=== PATIENT | male | born 1965 | race Hispanic/Latino ===

== ENCOUNTER 2016-07-19 13:43 | Emergency (ER) | payer MEDICARE, OTHER ==
[2016-07-19] MEDS ORDERED: ONDANSETRON 4 MG VIAL ONE (17:12)
[2016-07-19] MEDS ORDERED: DILAUDID 1 MG/ML AMP ONE ×2 (17:12→18:39)
[2016-07-19] MEDS ORDERED: SODIUM CHLORIDE 0.9% 1,000 ML ONE (17:13)
== END 2016-07-19 19:03 | disposition home or self-care (01) ==
LOC: ER 13:43
DX: R10.11 Right upper quadrant pain (principal); K21.9 Gastro-esophageal reflux disease without esophagitis
CPT/HCPCS: 36415; 76705; 80053; 81003; 83690; 85025; 96361; 96374; 96375; 96376; 99284; J1170; J2405